=== PATIENT | female | born 1970 | race Caucasian/White ===

== ENCOUNTER 2025-04-05 18:11 | Emergency (ER) | payer BC, SELFPAY ==
[2025-04-05 18:12] VITALS: BP 143/81; PULSE 101; RESP 17; TEMP 37.3; O2SAT 96
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
[2025-04-05] MEDS: IBUPROFEN TAB 600 MG TABLET PO (20:44)
== END 2025-04-06 00:29 | disposition home or self-care (01) ==
PROVIDERS: Emergency Provider Emergency Medicine
DX: S62.232A Other displaced fracture of base of first metacarpal bone, left hand, initial encounter for closed fracture (principal); S49.92XA Unspecified injury of left shoulder and upper arm, initial encounter; S69.92XA Unspecified injury of left wrist, hand and finger(s), initial encounter; S89.92XA Unspecified injury of left lower leg, initial encounter; M25.552 Pain in left hip; S19.9XXA Unspecified injury of neck, initial encounter; S09.90XA Unspecified injury of head, initial encounter; V53.5XXA Driver of pick-up truck or van injured in collision with car, pick-up truck or van in traffic accident, initial encounter
CPT/HCPCS: 29126; 70450; 72125; 73030; 73110; 73130; 73502; 73562; 99283; A9270